=== PATIENT | male | born 1990 | race Caucasian/White ===

== ENCOUNTER 2016-11-14 22:20 | Inpatient (IN) | payer MEDICAID ==
[~2016-11-14] VITALS: Ht 180.3 cm; Wt 74.8 kg
[2016-11-14 23:10] VITALS: BP_SYST 132
[2016-11-15] MEDS ORDERED: CLINDAMYCIN 900 mg/50mL D5W 50 ML IV ONE (03:45)
[2016-11-15] MEDS ORDERED: ACETAMINOPHEN 500 MG TABLET ONE (03:57)
[2016-11-15] MEDS ORDERED: ACETAMINOPHEN 500 MG TABLET PO ONE (04:00)
[2016-11-15 04:28] LABS: HEMATOCRIT 48.1 % (36-54); HEMOGLOBIN 15.8 g/dL (14.0-18.0); MEAN CORPUSCULAR HEMOGLOBIN 29 pg (27-31); MEAN CORPUSCULAR HGB CONC 33 % (32-36); MEAN CORPUSCULAR VOLUME 88 fL (79.0-98.0); PLATELET COUNT (AUTO) 218 K/uL (130-430); RED BLOOD CELL COUNT(AUTO) 5.46 MIL/uL (4.2-6.2); RED CELL DISTRIBUTION WIDTH 11.9 % (9.0-15.0); WHITE BLOOD COUNT (AUTO) 21.7 K/uL (4.8-10.8)
[2016-11-15 04:32] LABS: CALCIUM 8.6 mg/dL (8.4-11.0); CREATININE 0.89 mg/dL (0.55-1.30); POTASSIUM 3.5 mmol/L (3.5-5.1)
[2016-11-15 04:36] LABS: INR 1.2 (0.80-1.20); PROTHROMBIN TIME 13.2 SECS (9.5-12.5)
[2016-11-15 04:37] LABS: ALBUMIN 3.7 g/dL (3.4-4.8); TOTAL PROTEIN, SERUM 7.2 g/dL (6.4-8.3)
[2016-11-15 04:41] VITALS: BP_SYST 132
[2016-11-15 04:55] LABS: BAND % (MANUAL) 2 % (0-6); BASOPHILS % (MANUAL) 0 % (0-2); EOSINOPHILS % (MANUAL) 0 % (0-7); LYMPHOCYTES % (MANUAL) 9 % (20-46); MONOCYTES % (MANUAL) 9 % (0-11)
[2016-11-15] MEDS ORDERED: VANCOMYCIN HCL 1,000 MG in NS 250 ML IV ONE (05:00)
[2016-11-15] MEDS ORDERED: VANCOMYCIN HCL 1000 MG/VIAL IV ONE (05:16)
[2016-11-15 08:45] VITALS: BP_SYST 111
[2016-11-15] MEDS ORDERED: POTASSIUM CHLORIDE 10 MEQ TAB.PRT.SR PO PRN (10:00)
[2016-11-15] MEDS ORDERED: ACETAMINOPHEN 325 MG TABLET PO PRN (10:00)
[2016-11-15] MEDS ORDERED: MAGNESIUM SULFATE 50 ML IV PRN (10:00)
[2016-11-15] MEDS ORDERED: LORazepam 2 MG/ML VIAL IVP PRN (10:00)
[2016-11-15] MEDS ORDERED: ONDANSETRON HCL 4 MG/2 ML VIAL IVP PRN (10:00)
[2016-11-15] MEDS ORDERED: DOCUSATE SODIUM 100 MG CAPSULE PO PRN (10:00)
[2016-11-15] MEDS ORDERED: ZOLPIDEM TARTRATE 5 MG TABLET PO PRN (10:00)
[2016-11-15] MEDS: CLINDAMYCIN 600 MG in D5W 50 ML IV SCH ×2 (11:25→18:46)
[2016-11-15 12:00] VITALS: BP_SYST 110
[2016-11-15] MEDS ORDERED: PIPERACILLIN/TAZO 4.5GM/DEX-IS 100 ML IV SCH (14:00)
[2016-11-15] MEDS: VANCOMYCIN HCL 1,000 MG in NS 250 ML IV SCH ×2 (14:13→21:42)
[2016-11-15 16:43] VITALS: BP_SYST 132
[2016-11-15 20:17] VITALS: BP_SYST 139
[2016-11-15] MEDS: NACL 0.9% 1,000 ML IV SCH (21:41)
[2016-11-15] MEDS: MORPHINE 2 MG/ML INJ. SYRINGE IVP PRN (21:43)
[2016-11-16] MEDS: CLINDAMYCIN 600 MG in D5W 50 ML IV SCH ×4 (00:26→17:28)
[2016-11-16 00:31] VITALS: BP_SYST 118
[2016-11-16] MEDS: MORPHINE 2 MG/ML INJ. SYRINGE IVP PRN ×4 (03:21→21:00)
[2016-11-16 03:31] VITALS: BP_SYST 127
[2016-11-16] MEDS: NACL 0.9% 1,000 ML IV SCH ×2 (06:00→15:27)
[2016-11-16] MEDS: VANCOMYCIN HCL 1,000 MG in NS 250 ML IV SCH ×3 (06:50→21:04)
[2016-11-16 07:10] LABS: BASOPHILS # (AUTO) 0.1 K/uL (0.0-0.2); BASOPHILS % (AUTO) 0.8 % (0.0-2.0); EOSINOPHILS # (AUTO) 0.2 K/uL (0.0-0.4); EOSINOPHILS % (AUTO) 1.3 % (0.0-4.0); HEMATOCRIT 45.6 % (36-54); HEMOGLOBIN 14.7 g/dL (14.0-18.0); LYMPHOCYTES # (AUTO) 2.3 K/uL (1.0-5.5); LYMPHOCYTES % (AUTO) 14.3 % (20.5-51.5); MEAN CORPUSCULAR HEMOGLOBIN 28 pg (27-31); MEAN CORPUSCULAR HGB CONC 32 % (32-36); MEAN CORPUSCULAR VOLUME 88 fL (79.0-98.0); MONOCYTES # (AUTO) 1.1 K/uL (0.0-1.0); MONOCYTES % (AUTO) 6.8 % (1.7-9.3); NEUTROPHILS # (AUTO) 12.7 K/uL (1.8-7.7); NEUTROPHILS % (AUTO) 76.8 % (40.0-70.0); PLATELET COUNT (AUTO) 228 K/uL (130-430); RED BLOOD CELL COUNT(AUTO) 5.16 MIL/uL (4.2-6.2); RED CELL DISTRIBUTION WIDTH 12.3 % (9.0-15.0); WHITE BLOOD COUNT (AUTO) 16.4 K/uL (4.8-10.8)
[2016-11-16 07:31] LABS: CALCIUM 8.6 mg/dL (8.4-11.0); CREATININE 0.93 mg/dL (0.55-1.30); POTASSIUM 4.1 mmol/L (3.5-5.1)
[2016-11-16 08:00] VITALS: BP_SYST 121
[2016-11-16 16:34] VITALS: BP_SYST 110
[2016-11-16 20:23] VITALS: BP_SYST 116
[2016-11-17 00:04] VITALS: BP_SYST 115
[2016-11-17] MEDS: CLINDAMYCIN 600 MG in D5W 50 ML IV SCH ×4 (00:04→17:20)
[2016-11-17 04:19] VITALS: BP_SYST 123
[2016-11-17] MEDS: NACL 0.9% 1,000 ML IV SCH ×3 (04:58→23:15)
[2016-11-17] MEDS: VANCOMYCIN HCL 1,000 MG in NS 250 ML IV SCH (06:12)
[2016-11-17] MEDS: MORPHINE 2 MG/ML INJ. SYRINGE IVP PRN ×4 (06:16→20:41)
[2016-11-17 07:28] VITALS: BP_SYST 106
[2016-11-17 07:40] LABS: BASOPHILS # (AUTO) 0.1 K/uL (0.0-0.2); BASOPHILS % (AUTO) 0.8 % (0.0-2.0); CALCIUM 8.7 mg/dL (8.4-11.0); CREATININE 0.87 mg/dL (0.55-1.30); EOSINOPHILS # (AUTO) 0.3 K/uL (0.0-0.4); EOSINOPHILS % (AUTO) 3.2 % (0.0-4.0); HEMOGLOBIN 14.8 g/dL (14.0-18.0); LYMPHOCYTES # (AUTO) 1.8 K/uL (1.0-5.5); LYMPHOCYTES % (AUTO) 19.5 % (20.5-51.5); MEAN CORPUSCULAR HEMOGLOBIN 29 pg (27-31); MEAN CORPUSCULAR HGB CONC 33 % (32-36); MEAN CORPUSCULAR VOLUME 89 fL (79.0-98.0); MONOCYTES # (AUTO) 0.6 K/uL (0.0-1.0); MONOCYTES % (AUTO) 6.6 % (1.7-9.3); NEUTROPHILS # (AUTO) 6.6 K/uL (1.8-7.7); NEUTROPHILS % (AUTO) 69.9 % (40.0-70.0); PLATELET COUNT (AUTO) 250 K/uL (130-430); POTASSIUM 3.8 mmol/L (3.5-5.1); RED BLOOD CELL COUNT(AUTO) 5.08 MIL/uL (4.2-6.2); RED CELL DISTRIBUTION WIDTH 11.9 % (9.0-15.0); WHITE BLOOD COUNT (AUTO) 9.4 K/uL (4.8-10.8)
[2016-11-17 12:11] VITALS: BP_SYST 114; BP_SYST 157
[2016-11-17] MEDS: VANCOMYCIN HCL 1,250 MG in NS 250 ML IV SCH ×2 (14:41→23:16)
[2016-11-17 16:35] VITALS: BP_SYST 114
[2016-11-17 20:38] VITALS: BP_SYST 120
[2016-11-18] MEDS: CLINDAMYCIN 600 MG in D5W 50 ML IV SCH ×2 (01:27→05:04)
[2016-11-18 01:53] VITALS: BP_SYST 125
[2016-11-18 04:08] VITALS: BP_SYST 118
[2016-11-18] MEDS: VANCOMYCIN HCL 1,250 MG in NS 250 ML IV SCH (05:39)
[2016-11-18 06:46] LABS: BASOPHILS % (AUTO) 0.7 % (0.0-2.0); EOSINOPHILS # (AUTO) 0.3 K/uL (0.0-0.4); EOSINOPHILS % (AUTO) 4.4 % (0.0-4.0); HEMATOCRIT 47.1 % (36-54); HEMOGLOBIN 15.3 g/dL (14.0-18.0); LYMPHOCYTES # (AUTO) 1.9 K/uL (1.0-5.5); LYMPHOCYTES % (AUTO) 26.4 % (20.5-51.5); MEAN CORPUSCULAR HEMOGLOBIN 29 pg (27-31); MEAN CORPUSCULAR HGB CONC 33 % (32-36); MEAN CORPUSCULAR VOLUME 88 fL (79.0-98.0); MONOCYTES # (AUTO) 0.6 K/uL (0.0-1.0); MONOCYTES % (AUTO) 8.4 % (1.7-9.3); NEUTROPHILS # (AUTO) 4.3 K/uL (1.8-7.7); NEUTROPHILS % (AUTO) 60.1 % (40.0-70.0); PLATELET COUNT (AUTO) 283 K/uL (130-430); RED BLOOD CELL COUNT(AUTO) 5.38 MIL/uL (4.2-6.2); RED CELL DISTRIBUTION WIDTH 12.1 % (9.0-15.0); WHITE BLOOD COUNT (AUTO) 7.1 K/uL (4.8-10.8)
[2016-11-18 07:00] LABS: CALCIUM 9.2 mg/dL (8.4-11.0); CREATININE 0.79 mg/dL (0.55-1.30); POTASSIUM 3.9 mmol/L (3.5-5.1)
[2016-11-18] MEDS: NACL 0.9% 1,000 ML IV SCH (08:00)
[2016-11-18 08:02] VITALS: BP_SYST 137
[2016-11-18] MEDS ORDERED: CEPH-568 PO (09:27)
[2016-11-18] MEDS ORDERED: CLIN-77 PO (09:27)
[2016-11-18 10:08] VITALS: BP_SYST 137
== END 2016-11-18 10:20 | disposition home or self-care (01) | DRG 720 ==
LOC: SED 22:20 → SMU 11-15 04:19
PROVIDERS: ADMIT General Practice; ATTEND General Practice
DX: A41.9 Sepsis, unspecified organism (principal); R18.8 Other ascites; L03.211 Cellulitis of face; F17.210 Nicotine dependence, cigarettes, uncomplicated; K12.2 Cellulitis and abscess of mouth; Z86.14 Personal history of Methicillin resistant Staphylococcus aureus infection
CPT/HCPCS: 36415; 70486-TC; 76536-TC; 80048; 80053; 80202-TC; 83735-TC; 85007; 85025; 85027; 85610-TC; 87040-TC; 87081; 96365; 99285; J2270; J3370; J3490; J7030; J7050; J7060

== ENCOUNTER 2022-12-09 12:21 | Emergency (ER) | payer MEDICAID ==
[~2022-12-09] VITALS: Ht 165.1 cm; Wt 72.6 kg
[~2022-12-09 12:21] MED LIST: CEPH-568 PO; CLIN-142 PO
[2022-12-09 12:30] VITALS: BP_SYST 136; PULSE 85; RESP 18; TEMP 98.3; O2SAT 98
[2022-12-09] MEDS ORDERED: MORPHINE 4 MG INJ. 4 MG/ML VIAL IM ONE (12:30)
[2022-12-09] MEDS ORDERED: KETOROLAC TROMETHAMINE 60 MG/2 ML VIAL IM ONE (12:30)
--- NOTE | 2022-12-09 12:30 | NUR ---
Patient to ER bed H1 to gown for evaluation. Side rails up.
--- NOTE | 2022-12-09 12:35 | NUR ---
Pt brought by self, A&Ox4, pt presents to ER with lower back pain after working out, Hx of sciatica, skin pink and warm, cap refill <3, VSS.
--- NOTE | 2022-12-09 12:45 | NUR ---
Jovita arnett in [facility] - 12/09/22 at [email or web address] Franks evaluating patient at bedside
--- NOTE | 2022-12-09 12:45 | NUR ---
Dr Blanca evaluating patient at bedside
[2022-12-09] MEDS ORDERED: NAPR-1172 PO (13:45)
--- NOTE | 2022-12-09 14:18 | NUR ---
Patient given written and verbal discharge instructions and verbalizes understanding. ER MD discussed with patient the results and treatment provided. Patient in stable condition. ID arm band removed. Rx of Naproxen given. Patient educated on pain management and to follow up with PMD. Pain Scale 2/10. Opportunity for questions provided and answered. Medication side effect fact sheet provided.
[2022-12-09 14:19] VITALS: BP_SYST 136; PULSE 85; RESP 18; TEMP 98.3; O2SAT 98
== END 2022-12-09 14:18 | disposition home or self-care (01) ==
LOC: SED 12:21
DX: S39.012A Strain of muscle, fascia and tendon of lower back, initial encounter (principal); Z79.899 Other long term (current) drug therapy; X58.XXXA Exposure to other specified factors, initial encounter; Y93.89 Activity, other specified; Y92.89 Other specified places as the place of occurrence of the external cause; Y99.8 Other external cause status
CPT/HCPCS: 99283; 72110; 96372; J1885